=== PATIENT | male | born 1975 | race Caucasian/White ===

== ENCOUNTER 2023-04-28 15:26 | Inpatient (IN) ==
[2023-04-28] MEDS ORDERED: Lactated Ringers 1000 ml BAG 1,000 ML IV ONE (16:07)
[2023-04-28 16:31] LABS: INR 1.14 (0.83-1.13)
[2023-04-28 16:36] LABS: ABS Lymphocytes 1.3 10^3/uL (1.0-4.8); ABS Monocytes 0.9 10^3/uL (0.0-1.1); ABS Neutrophils 6.3 10^3/uL (1.5-7.6); ABS Nucleated RBC 0.01 10^3/ul; Eosinophil % 0.3 %; Hematocrit 47.5 % (38-53); Hemoglobin 16.3 g/dL (13.2-16.3); Lymphocyte % 15.1 %; Mean Corpuscular Hemoglobin 35.5 pg (27-33); Mean Corpuscular Hgb Conc 34.3 g/dL (31-36); Mean Corpuscular Volume 103.6 fL (80-97); Mean Platelet Volume 9.5 fL (7.5-11.2); Nucleated Red Blood Cells % 0.1 %/100WBC (0.0-0.8); Platelet Count 115 10^3/uL (150-450); Red Blood Count 4.58 10^6/uL (4.06-5.63); Red Cell Distribution Width 14.1 % (12-17); White Blood Count 8.5 10^3/uL (3.6-10.2)
[2023-04-28 17:24] LABS: High Sensitivity Troponin 1 Hr 15 pg/mL (<20)
[2023-04-28 18:33] LABS: Albumin 4.2 g/dL (3.2-5.2); Calcium 9.4 mg/dL (8.6-10.3); Potassium 4.4 mmol/L (3.5-5.0); Total Bilirubin 0.6 mg/dL (0.2-1.0)
[2023-04-28 18:39] LABS: Albumin/Globulin Ratio 1.3 (1-3); Creatinine, Serum 0.92 mg/dL (0.67-1.17); Globulin 3.2 g/dL (2-4); Total Protein 7.4 g/dL (6.4-8.9); eGFR CKD-EPI 101.3 (>60)
[2023-04-28] MEDS ORDERED: Amiodarone 150 mg IVPREMIX 150 MG/100 ML BAG IV ONE (18:52)
[2023-04-28] MEDS ORDERED: .Amiodarone 24HR ONLY IV Protocol Order Note IV ONE (18:52)
[2023-04-28] MEDS ORDERED: Amiodarone 360 MG IVPREMIX 360 MG/200 ML BAG IV SCH (19:05)
[2023-04-28] MEDS ORDERED: Enoxaparin 40 MG/0.4 ML SYR SUBCUT SCH (20:00)
[2023-04-28] MEDS ORDERED: Enoxaparin 30 MG/0.3 ML SYR SUBCUT ONE (23:18)
[2023-04-29 00:45] LABS: Magnesium 1.4 mg/dL (1.9-2.7)
[2023-04-29] MEDS ORDERED: Thiamine 100 MG/ML 2 ml VIAL (200 mg) IM ONE (01:03)
[2023-04-29] MEDS ORDERED: Amiodarone 360 MG IVPREMIX 360 MG/200 ML BAG IV SCH (01:05)
[2023-04-29] MEDS ORDERED: Magnesium Sulf 4 GM/100 ML IV 4,000 MG/100 ML BAG IVPB ONE (01:08)
[2023-04-29] MEDS ORDERED: Lorazepam PYXIS KEY PRN (01:39)
[2023-04-29 01:41] LABS: Alcohol, S < 13 mg/dL (<13)
[2023-04-29 01:50] LABS: Folate 13.37 ng/mL (5.90-24.80)
[2023-04-29 01:51] LABS: Vitamin B12 186 pg/mL (180-914)
[2023-04-29] MEDS ORDERED: LORazepam 2 mg VIAL 1 ml IV PUSH SCH (02:00)
[2023-04-29 03:09] LABS: ALT 19 U/L (7-52); AST 39 U/L (13-39); Albumin 4.3 g/dL (3.2-5.2); Albumin/Globulin Ratio 1.3 (1-3); Alkaline Phosphatase 105 U/L (35-149); Direct Bilirubin 0.1 mg/dL (0.03-0.18); Globulin 3.3 g/dL (2-4); Indirect Bilirubin 0.4 mg/dL (0.3-1.0); Total Bilirubin 0.5 mg/dL (0.2-1.0); Total Protein 7.6 g/dL (6.4-8.9)
[2023-04-29] MEDS ORDERED: Metoprolol Tartrate 5 mg VIAL 5 ml VIAL (1 mg/ml) IV ONE ×2 (03:43→11:00)
[2023-04-29] MEDS ORDERED: Metoprolol Tartrate 5 mg VIAL 5 ml VIAL (1 mg/ml) ONE ×3 (03:51→10:58)
[2023-04-29 04:34] LABS: Hematocrit 46.8 % (38-53); Hemoglobin 16.3 g/dL (13.2-16.3); Mean Corpuscular Hemoglobin 35.7 pg (27-33); Mean Corpuscular Hgb Conc 34.7 g/dL (31-36); Mean Corpuscular Volume 102.9 fL (80-97); Mean Platelet Volume 9.1 fL (7.5-11.2); Platelet Count 112 10^3/uL (150-450); Red Blood Count 4.55 10^6/uL (4.06-5.63); White Blood Count 7.2 10^3/uL (3.6-10.2)
[2023-04-29 06:56] LABS: Lipase 20 U/L (11.0-82.0)
[2023-04-29 07:39] LABS: Anion Gap 15 mmol/L (2-16); CO2 Carbon Dioxide 26 mmol/L (22-32); Calcium 9.1 mg/dL (8.6-10.3); Chloride 99 mmol/L (101-111); Sodium 140 mmol/L (135-145)
[2023-04-29 07:48] LABS: Blood Urea Nitrogen 7 mg/dL (6-24); Creatinine, Serum 0.71 mg/dL (0.67-1.17); Glucose 108 mg/dL (70-100); eGFR CKD-EPI 111.8 (>60)
[2023-04-29 08:03] LABS: Potassium Redraw 3.7 mmol/L (3.5-5.0)
[2023-04-29] MEDS: Multivitamins/Minerals TAB PO SCH (09:13)
[2023-04-29] MEDS ORDERED: Digoxin IV 0.5 MG/2 ML AMP (0.25 MG/ML) IV SLOW PU ONE (09:21)
[2023-04-29] MEDS: Enoxaparin 80 MG/0.8 ML SYR SUBCUT SCH ×2 (10:06→20:31)
[2023-04-29 10:39] LABS: TSH Ultra Thyroid Stim Horm 7.07 mcIU/mL (0.34-5.60)
[2023-04-29 10:42] LABS: Free T3 3.32 pg/mL (2.5-3.9)
[2023-04-29 10:43] LABS: Free T4 0.81 ng/dL (0.61-1.12)
[2023-04-29] MEDS ORDERED: Propofol 10 MG/ML 20 ML BTL ONE (11:30)
[2023-04-29 12:36] LABS: Calcium 9.1 mg/dL (8.6-10.3); Creatinine, Serum 0.78 mg/dL (0.67-1.17); Potassium 4.1 mmol/L (3.5-5.0); eGFR CKD-EPI 108.6 (>60)
[2023-04-29] MEDS: Amiodarone 400 mg TAB PO SCH (20:27)
[2023-04-30] MEDS: Multivitamins/Minerals TAB PO SCH (08:34)
[2023-04-30] MEDS: Amiodarone 400 mg TAB PO SCH (08:34)
[2023-04-30] MEDS: Enoxaparin 80 MG/0.8 ML SYR SUBCUT SCH (08:35)
[2023-04-30 08:42] LABS: Albumin 3.6 g/dL (3.2-5.2); Albumin/Globulin Ratio 1.2 (1-3); Calcium 9.1 mg/dL (8.6-10.3); Creatinine, Serum 0.85 mg/dL (0.67-1.17); Globulin 3.1 g/dL (2-4); Magnesium 1.8 mg/dL (1.9-2.7); Potassium 3.6 mmol/L (3.5-5.0); Total Bilirubin 1.8 mg/dL (0.2-1.0); Total Protein 6.7 g/dL (6.4-8.9); eGFR CKD-EPI 105.9 (>60)
[2023-04-30] MEDS ORDERED: Magnesium Sulfate IV 1GM/100ML 1 GM/100 ML BAG IV ONE (09:01)
[2023-04-30] MEDS ORDERED: Thiamine 100 MG/ML 2 ml VIAL 250 MG in NS 0.9% 100 ml BAG 100 ML IV SCH (11:00)
[2023-04-30 14:21] VITALS: BP 90/64
== END 2023-04-30 16:00 | disposition home or self-care (01) | DRG 308 ==
LOC: ED 15:26 → SUATTDRO 18:54 → ICU 18:54 → EDHOLD 18:54 → ICU 20:29 → MEDTELE 04-30 02:50
PROVIDERS: ADMIT Internal Medicine Pulmonary Disease; ATTEND Student in an Organized Health Care Education/Training Program
PROC: O.CATEE (2023-04-29 11:15)